=== PATIENT | female | born 1980 | race Caucasian/White ===

== ENCOUNTER 2019-06-04 14:18 | Emergency (ER) | payer OTHER ==
[~2019-06-04] VITALS: Wt 74.4 kg
[~2019-06-04 14:18] MED LIST: ACET500C5 PO; DOCU-144 PO; FER325 PO; HYDR-4011 PO; IBUP-1542 PO
[2019-06-04 18:39] VITALS: BP 101/52; PULSE 72; RESP 20
--- NOTE | 2019-06-05 09:15 | ERD ---
ER Documentation Chief Complaint Chief Complaint RLQ pain HPI 39-year-old female presents with right lower quadrant and left lower quadrant pain. States that the pain is intermittent and currently 7 out of 10 intensity. States the pain is been for the last 3 days. States that she is has history of fibroids and has had pain before in this area but never this intensity in this duration. Patient denies any anorexia, dysuria, hematuria, nausea, vomiting, diarrhea, fevers, chill, back pain. ROS All systems reviewed and are negative except as per history of present illness. Medications Home Meds Active Scripts Hydrocodone/Acetaminophen ([place] 5-325 Tablet) 1 Each Tablet, 1 TAB PO Q6H PRN for PAIN, #10 TAB Prov:SANTY CHURCHILL 06/04/19 Ibuprofen* (Motrin*) 600 Mg Tab, 600 MG PO Q6, #30 TAB Prov:SANTY CHURCHILL 06/04/19 Allergies Allergies: Coded Allergies: No Known Drug Allergy (Verified Allergy, Mild, 12/25/08) PMhx/Soc History of Surgery: No Anesthesia Reaction: No Hx Neurological Disorder: No Hx Respiratory Disorders: No Hx Cardiac Disorders: No Hx Psychiatric Problems: No Hx Miscellaneous Medical Probl: Yes (fibroids,cyst) Hx Alcohol Use: No Hx Substance Use: No Hx Tobacco Use: No FmHx Family History: No diabetes, No coronary disease, No other Physical Exam Vitals Vital Signs Date Temp Pulse Resp B/P (MAP) Pulse Ox O2 O2 Flow FiO2 Time Delivery Rate 06/04/19 98.5 72 20 101/52 100 Room Air 18:39 (68) 06/04/19 99.2 98 20 135/72 98 14:20 (93) Physical Exam Const: No acute distress Head: Atraumatic Eyes: Normal Conjunctiva ENT: Normal External Ears, Nose and Mouth. Neck: Full range of motion. No meningismus. Resp: Clear to auscultation bilaterally Cardio: Regular rate and rhythm, no murmurs Abd: mild tenderness to palpation in the right lower quadrant without guarding or rigidity. Abdomen otherwise none tender and nondistended. Able to jump up and down on exam. 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300 % Neutrophils % 66.9 % Lymphocytes % 23.5 % Monocytes % 6.9 % Eosinophils % 1.5 % Basophils % 0.9 % Nucleated Red Blood Cells % 0.0 /100WBC Immature Granulocytes # 0.020 10^3/ul Neutrophils # 4.9 10^3/ul Lymphocytes # 1.7 10^3/ul Monocytes # 0.5 10^3/ul Eosinophils # 0.1 10^3/ul Basophils # 0.1 10^3/ul Nucleated Red Blood Cells # 0.0 10^3/ul Urine Color STRAW Urine Clarity CLEAR Urine pH 6.0 Urine Specific [place] 1.004 Urine Ketones NEGATIVE mg/dL Urine Nitrite NEGATIVE mg/dL Urine Bilirubin NEGATIVE mg/dL Urine Urobilinogen NEGATIVE mg/dL Urine Leukocyte Esterase NEGATIVE Clarita/ul Urine Hemoglobin NEGATIVE mg/dL Urine Glucose NEGATIVE mg/dL Urine Total Protein NEGATIVE mg/dl Sodium Level 141 mmol/L Potassium Level 4.0 mmol/L Chloride Level 107 mmol/L Carbon Dioxide Level 22 mmol/L Anion Gap 12 Blood Urea Nitrogen 12 mg/dl Creatinine 0.83 mg/dl Est Glomerular Filtrat Rate mL/min > 60 mL/min Glucose Level 98 mg/dl Calcium Level 9.0 mg/dl Total Bilirubin 0.4 mg/dl Direct Bilirubin 0.00 mg/dl Indirect Bilirubin 0.4 mg/dl Aspartate Amino Transf (AST/SGOT) 23 IU/L Alanine Aminotransferase (ALT/SGPT) 17 IU/L Alkaline Phosphatase 53 IU/L Total Protein 8.6 g/dl Albumin 4.4 g/dl Globulin 4.20 g/dl Albumin/Globulin Ratio 1.04 Lipase 83 U/L POC Beta HCG, Qualitative NEGATIVE Procedures/MDM MDM: There is concern for possible pelvic pathology as patient stated she had a history of fibroid so ultrasound was done. Ultrasound was positive for fibroids but showed no other findings. In addition, my suspicion for appendicitis is low as patient is able to jump up and down on exam, has no anorexia, has no fevers, has no chills, can jump up and down, has no white count and is not vomiting. Since appendicitis cannot be definitively ruled out without CT scan which I do not think is warranted at this time, advised patient to come back tomorrow morning for repeat exam. I have low suspicion for acute coronary syndrome, AAA, mesenteric ischemia, lower lobe pneumonia, DKA, bowel perforation, cholecystitis, choledocholithiasis, ascending cholangitis, hepatic abscess, pancreatitis, PUD, splenic rupture, diverticulitis, pyelonephritis, nephrolithiasis, appendicitis,, , ectopic , PID, ovarian torsion or tubo-ovarian abscess at this time, patient is stable for discharge and outpatient management. I have instructed the patient to follow-up with his/her primary care physician in 1-2 days. I have discussed with the patient the possibility of needing to see a specialist for further workup and imaging studies if symptoms persist. I have instructed the patient to promptly return to the ER for any new or worsening symptoms including but not limited to increased pain, fever, nausea, vomiting, weakness or LOC. The patient and/or family expressed understanding of and agreement with this plan. All questions were answered. Home care instructions were provided. DISCLAIMER: Inadvertent spelling and grammatical errors are likely due to EHR/dictation software use and do not reflect on the overall quality of patient care. Also, please note that the electronic time recorded on this note does not necessarily reflect the actual time of the patient encounter. . Departure Diagnosis: Primary Impression: Pelvic pain Condition: Stable Patient Instructions: Pelvic Pain, Unknown Cause Referrals: [facility] YOU HAVE RECEIVED A MEDICAL SCREENING EXAM AND THE RESULTS INDICATE THAT YOU DO NOT HAVE A CONDITION THAT REQUIRES URGENT TREATMENT IN THE EMERGENCY DEPARTMENT. FURTHER EVALUATION AND TREATMENT OF YOUR CONDITION CAN WAIT UNTIL YOU ARE SEEN IN YOUR DOCTORS OFFICE WITHIN THE NEXT 1-2 DAYS. IT IS YOUR RESPONSIBILITY TO MAKE AN APPOINTMENT FOR FOLOW-UP CARE. IF YOU HAVE A PRIMARY DOCTOR --you should call your primary doctor and schedule an appointment IF YOU DO NOT HAVE A PRIMARY DOCTOR YOU CAN CALL OUR PHYSICIAN REFERRAL HOTLINE AT IF YOU CAN NOT AFFORD TO SEE A PHYSICIAN YOU CAN CHOSE FROM THE FOLLOWING [facility] [address] [facility] [address] [facility] [facility] [address] [facility] [address] [facility] [address] [facility]. [facility]. [address] Additional Instructions: As discussed, please return in the morning for follow-up exam. Return to ER sooner than if symptoms worsen. SANTY CHURCHILL Jun 05, 2019 09:15
== END 2019-06-04 18:41 | disposition home or self-care (01) ==
LOC: FTE 14:18
DX: R10.2 Pelvic and perineal pain (principal)
CPT/HCPCS: 36415; 76830; 76856; 80053; 81003; 81025; 83690; 85025; 87210; 87591

== ENCOUNTER 2019-06-05 13:34 | Emergency (ER) | payer OTHER ==
[~2019-06-05] VITALS: Ht 154.9 cm; Wt 73.3 kg
[~2019-06-05 13:34] MED LIST changes: -ACET500C5 PO; -DOCU-144 PO; -FER325 PO
[2019-06-05 13:46] VITALS: BP 107/64; PULSE 86; RESP 18; Ht 154.9 cm; Wt 73.3 kg
[2019-06-05] MEDS ORDERED: ACETAMINOPHEN 500 MG TAB PO STA (14:04)
[2019-06-05] MEDS ORDERED: FER325 PO (15:46)
[2019-06-05] MEDS ORDERED: DOCU-144 PO (15:46)
[2019-06-05] MEDS ORDERED: ACET500C5 PO (15:46)
--- NOTE | 2019-06-05 16:40 | ERD ---
ER Documentation Chief Complaint Chief Complaint recheck ; pt was seen here yesterday - still having abd pain HPI Patient is a 39-year-old female, past medical history of fibroids, presents the ER for concerns of abdominal pain recheck. Patient was seen here yesterday. Patient states she continues to have abdominal pain. Patient states her pain is in her bilateral lower quadrants however worse in the right lower quadrant. Pat isabel states she has had this pain for the last 4 days. She denies any associated fevers, chills, nausea, vomiting, dysuria, frequency, urgency, hematuria, vaginal bleeding. Patient states she does have a history of fibroids however her pain feels different. ROS All systems reviewed and are negative except as per history of present illness. Medications Home Meds Active Scripts Docusate Sodium* (Colace*) 100 Mg Capsule, 100 MG PO BID, #30 CAP Prov:TAYLOR GEORGE PA-C 06/05/19 Ferrous Sulfate* (Ferrous Sulfate*) 325 Mg Tabec, 325 MG PO BID, #30 TAB Prov:TAYLOR GEORGE PA-C 06/05/19 Acetaminophen* (Tylophen*) 500 Mg Capsule, 1 CAP PO Q6H PRN for PAIN AND OR ELEVATED TEMP, #20 CAP Prov:TAYLOR GEORGE PA-C 06/05/19 Hydrocodone/Acetaminophen ([place]scal[place] 5-325 Tablet) 1 Each Tablet, 1 TAB PO Q6H PRN for PAIN, #10 TAB Prov:SANTY CHURCHILL 06/04/19 Ibuprofen* (Motrin*) 600 Mg Tab, 600 MG PO Q6, #30 TAB Prov:SANTY CHURCHILL 06/04/19 Allergies Allergies: Coded Allergies: No Known Drug Allergy (Verified Allergy, Mild, 12/25/08) PMhx/Soc History of Surgery: Yes (C/S and D&C) Anesthesia Reaction: No Hx Neurological Disorder: No Hx Respiratory Disorders: No Hx Cardiac Disorders: No Hx Psychiatric Problems: No Hx Miscellaneous Medical Probl: Yes (fibroids,cyst) Hx Alcohol Use: No Hx Substance Use: No Hx Tobacco Use: No Smoking Status: Never smoker FmHx Family History: No diabetes Physical Exam Vitals Vital Signs Date Temp Pulse Resp B/P (MAP) Pulse Ox O2 O2 Flow FiO2 Time Delivery Rate 06/05/19 98.5 86 18 107/64 98 13:46 (78) Physical Exam GENERAL: Well-developed, well-nourished female. Appears in no acute distress. HEAD: Normocephalic, atraumatic. EYES: Pupils are equally reactive bilaterally. EOMs grossly intact. No conjunctival erythema. NECK: Supple. No meningismus. Normal range of motion of the neck. LUNG: Clear to auscultation bilaterally. No rhonchi, wheezing, rales or coarse breath sounds. HEART: Regular rate and rhythm. No murmurs, rubs or gallops. ABDOMEN: Soft, nondistended. Tender to palpation bilateral lower quadrants, right lower quadrant greater than left lower quadrant. Positive bowel sounds in all four quadrants. No rebound tenderness, no guarding. (-) McBurney's point tenderness. No CVA tenderness. BACK: No midline tenderness. EXTREMITIES: Equal pulses bilaterally. No peripheral clubbing, cyanosis or edema. No unilateral leg swelling. NEUROLOGIC: Alert and oriented. Moving all four extremities without any dif ficulty. Normal speech. Steady gait. SKIN: Normal color. Warm and dry. No rashes or lesions. Result Diagram: 06/05/19 1421 06/05/19 1421 Results 24 hrs Laboratory Tests Test 06/05/19 14:21 06/05/19 14:24 White Blood Count 7.2 10^3/ul Red Blood Count 4.15 10^6/ul Hemoglobin 8.3 g/dl Hematocrit 29.7 % Mean Corpuscular Volume 71.6 fl Mean Corpuscular Hemoglobin 20.0 pg Mean Corpuscular Hemoglobin Concent 27.9 g/dl Red Cell Distribution Width 17.2 % Platelet Count 402 10^3/UL Mean Platelet Volume 9.7 fl Immature Granulocytes % 0.100 % Neutrophils % 67.4 % Lymphocytes % 22.9 % Monocytes % 6.8 % Eosinophils % 1.8 % Basophils % 1.0 % Nucleated Red Blood Cells % 0.0 /100WBC Immature Granulocytes # 0.010 10^3/ul Neutrophils # 4.8 10^3/ul Lymphocytes # 1.6 10^3/ul Monocytes # 0.5 10^3/ul Eosinophils # 0.1 10^3/ul Basophils # 0.1 10^3/ul Nucleated Red Blood Cells # 0.0 10^3/ul Sodium Level 143 mmol/L Potassium Level 3.7 mmol/L Chloride Level 108 mmol/L Carbon Dioxide Level 25 mmol/L Anion Gap 10 Blood Urea Nitrogen 10 mg/dl Creatinine 0.86 mg/dl Est Glomerular Filtrat Rate mL/min > 60 mL/min Glucose Level 96 mg/dl Calcium Level 8.9 mg/dl Total Bilirubin 0.6 mg/dl Direct Bilirubin 0.00 mg/dl Indirect Bilirubin 0.6 mg/dl Aspartate Amino Transf (AST/SGOT) 21 IU/L Alanine Aminotransferase (ALT/SGPT) 18 IU/L Alkaline Phosphatase 52 IU/L Total Protein 8.5 g/dl Albumin 4.4 g/dl Globulin 4.10 g/dl Albumin/Globulin Ratio 1.07 POC Beta HCG, Qualitative NEGATIVE Current Medications Medications Dose Sig/Atif Start Time Status Last (Trade) Ordered Route PRN Stop Time Admin Dose Reason Admin 1,000 mg ONCE STAT 06/05/19 DC 06/05/19 Acetaminophen PO 14:04 14:18 (Tylenol 06/05/19 14:06 Tab) Procedures/MDM ED COURSE: The patient was stable throughout ED course. I kept the patient and/or family informed of laboratory and diagnostic imaging results throughout the ED course. DIAGNOSTIC IMAGING: Read by radiologist. Radiology Main Line: [phone] DIAGNOSTIC IMAGING REPORT Patient: CONNOR WATERMAN : 1980 Age: 39 Sex: F MR #: [id number] DOS: 06/05/19 1404 Ordering MD: TAYLOR GEORGE PA-C Location: [facility] Room/Bed: PROCEDURE: CT Abdomen and Pelvis without contrast. CLINICAL INDICATION: Abdominal and pelvic pain. TECHNIQUE: CT scan of the abdomen and pelvis without contrast was performed. Coronal and sagittal reformatted images were obtained from the axial source images. Images were reviewed on a high-resolution PACS workstation. Total exam DLP is 648 mGy-cm. CTDIvol is 11 mGy. One or more of the following dose reduction techniques were used: Automated exposure control, adjustment of the mA and/or kV according to patient size, use of iterative reconstruction technique. DICOM images are available. COMPARISON: None. FINDINGS: There is left lung base atelectasis versus scarring. There is no pleural effusion. The liver is normal in size and attenuation. There is no focal hepatic lesion. The gallbladder and bile ducts are normal. The spleen is normal in size. There is no focal splenic lesion. Both adrenals are normal with no enlargement or mass. The pancreas is unremarkable with no mass or evidence of pancreatitis. There is no renal mass or hydronephrosis. There is no renal calculus or ureteral calculus. The abdominal aorta is not dilated. There is no retroperitoneal lymphadenopathy or mass. There is a retroverted uterus. The bladder and distal ureters are normal. The periappendiceal region is unremarkable with no evidence of appendicitis. The bowel and mesentery are normal. There is a tiny amount of free fluid in the pelvis. The osseous structures are unremarkable with no fracture or lytic lesion. IMPRESSION: 1. No hydronephrosis or nephrolithiasis. 2. Retroverted uterus. 3. Small amount of free fluid in the pelvis, likely physiologic. RPTAT: QQ Physician Nataly Date Time Electronically viewed and signed by Physician Nataly on 06/05/2019 15:19 RD/ CC: TAYLOR GEORGE PA-C [id number] MEDICAL DECISION MAKING: This is a 39-year-old female past medical history of fibroids, presents the ER for concerns of lower abdominal pain for last 4 days. Patient was seen here y esterday and at that time she underwent appropriate work-up for her concerns. Yesterday, CBC showed no evidence of systemic infection. Anemia was noted however patient states she does have a history of anemia. CMP showed no severe electrolyte abnormalities, acidosis, alkalosis, renal injury or liver failure. UA was negative. Urine test was negative. Vital signs were reviewed. Patient was afebrile. Patient was not hypoxic. Patient was hemodynamically stable. Repeat labs were obtained today and patient continues to have no evidence of an elevated WBC count. Patient's hemoglobin is slightly improved and is noted to be 8.3, hematocrit of 29.7. No evidence of patient requiring a blood transfusion at this time. Urine test was negative. CT abdomen and pelvis were ordered as patient returns with worsening pain. On CT abdomen pelvis, no hydronephrosis or nephrolithiasis noted. Retro-everted uterus noted. At this time, patient's presentation is most consistent with pain secondary to fibroids. Low suspicion for acute coronary syndrome, AAA, mesenteric ischemia, lower lobe pneumonia, DKA, bowel perforation, cholecystitis, choledocholithiasis, ascending cholangitis, hepatic abscess, pancreatitis, PUD, gastritis, GERD, splenic rupture, diverticulitis, UTI, pyelonephritis, nephrolithiasis, appendicitis, constipation, , ectopic , PID, ovarian torsion or tubo-ovarian abscess. Patient was encouraged to follow-up with her CARE NAVIGATOR for further management of her symptoms. Patient was nontoxic, [id number] prior to discharge. PRESCRIPTIONS: Tylenol, Colace, iron supplements DISCHARGE: At this time, patient is stable for discharge and outpatient management. I have instructed the patient to follow-up with his/her primary care physician in 1-2 days. I have instructed the patient to promptly return to the ER at any time for any new or worsening symptoms including increased pain, nausea, vomiting, diarrhea, fever, weakness or LOC. The patient and/or family expressed understanding of and agreement with this plan. All questions were answered. Home care instructions were provided. Disclaimer: Inadvertent spelling and grammatical errors are likely due to EHR/dictation software use and do not reflect on the overall quality of patient care. Also, please note that the electronic time recorded on this note does not necessarily reflect the actual time of the patient encounter. Departure Diagnosis: Primary Impression: Fibroid Additional Impression: Pelvic pain Condition: Fair Patient Instructions: Uterine Fibroids Referrals: [facility] YOU HAVE RECEIVED A MEDICAL SCREENING EXAM AND THE RESULTS INDICATE THAT YOU DO NOT HAVE A CONDITION THAT REQUIRES URGENT TREATMENT IN THE EMERGENCY DEPARTMENT. FURTHER EVALUATION AND TREATMENT OF YOUR CONDITION CAN WAIT UNTIL YOU ARE SEEN IN YOUR DOCTORS OFFICE WITHIN THE NEXT 1-2 DAYS. IT IS YOUR RESPONSIBILITY TO MAKE AN APPOINTMENT FOR FOLOW-UP CARE. IF YOU HAVE A PRIMARY DOCTOR --you should call your primary doctor and schedule an appointment IF YOU DO NOT HAVE A PRIMARY DOCTOR YOU CAN CALL OUR PHYSICIAN REFERRAL HOTLINE AT IF YOU CAN NOT AFFORD TO SEE A PHYSICIAN YOU CAN CHOSE FROM THE FOLLOWING [facility] [address] [facility]. [facility] [address] [facility]. [facility] [address] [facility] [address] [facility] [phone] [facility]. [facility] [address] [facility] YOU HAVE RECEIVED A MEDICAL SCREENING EXAM AND THE RESULTS INDICATE THAT YOU DO NOT HAVE A CONDITION THAT REQUIRES URGENT TREATMENT IN THE EMERGENCY DEPARTMENT. FURTHER EVALUATION AND TREATMENT OF YOUR CONDITION CAN WAIT UNTIL YOU ARE SEEN IN YOUR DOCTORS OFFICE WITHIN THE NEXT 1-2 DAYS. IT IS YOUR RESPONSIBILITY TO MAKE AN APPOINTMENT FOR FOLOW-UP CARE. IF YOU HAVE A PRIMARY DOCTOR --you should call your primary doctor and schedule and appointment IF YOU DO NOT HAVE A PRIMARY DOCTOR YOU CAN CALL OUR PHYSICIAN REFERRAL HOTLINE AT . IF YOU CAN NOT AFFORD TO SEE A PHYSICIAN YOU CAN CHOSE FROM THE FOLLOWING [facility] INSTITUTIONS: [facility] [address] [place] [address] [facility] [address] [place] [address] [facility] [address] [place] [address] [employer] [address] [facility] [address] [place], [place] [id number] OFFICE FAX GUERO P[address]LE [address] [place], [place] [id number] [employer] [address] [place], [place] [phone] [place] GARCIA [address] [facility], [address] [address] [address] [facility] [place] [id number] [facility] [address] [place], [place] [address] [address] [facility] [id number] - [place] [address] [facility] [id number] HINES, [place]ANE[place] [address] [facility]. [address], [facility] [address], [facility] [address] [place] [address] Additional Instructions: Call your primary care doctor TOMORROW for an appointment during the next 1-2 days.See the doctor sooner or return here if your condition worsens before your appointment time. TAYLOR GEORGE PA-C Jun 05, 2019 16:40
== END 2019-06-05 15:50 | disposition home or self-care (01) ==
LOC: FTE 13:34
DX: D25.9 Leiomyoma of uterus, unspecified (principal); R10.2 Pelvic and perineal pain
CPT/HCPCS: 36415; 74176; 80053; 81025; 85025; Z7502; Z7610